=== PATIENT | male | born 1985 | race Caucasian/White ===

== ENCOUNTER 2023-02-19 04:51 | Emergency (ER) | payer OTHER ==
[2023-02-19 05:03] VITALS: PULSE 66; TEMP 97.8; BMI 22.9
[2023-02-19] MEDS ORDERED: CEFAZOLIN 1 GM in DEXTROSE 5%-WATER - 50 ML IVPB ONE (05:06)
[2023-02-19] MEDS ORDERED: morphine SULFATE 4 MG/ML VIAL IVPUSH ONE (05:08)
[2023-02-19] MEDS ORDERED: DIPHTH,PERTUSS(ACELL),TET 0.5 ML DISP.SYRIN IM ONE ×2 (05:08→05:15)
[2023-02-19] MEDS ORDERED: CEFAZOLIN SODIUM 2 GM VIAL IVPB ONE (05:13)
[2023-02-19] MEDS ORDERED: ceFAZolin SODIUM 1 GM VIAL ONE ×2 (05:15→05:43)
[2023-02-19] MEDS ORDERED: morphine SULFATE 4 MG/ML VIAL ONE (05:15)
[2023-02-19] MEDS ORDERED: LACTATED RINGERS SOLUTION 1000 ML INFUS.BAG IV ONE (05:24)
[2023-02-19] MEDS ORDERED: ONDANSETRON 4 MG/2 ML VIAL IVPUSH ONE (05:24)
[2023-02-19 05:40] LABS: BASO % 0.7 % (0-2.0); EOS % 3.1 % (0-4.5); HEMATOCRIT 42.3 % (35.4-49); HEMOGLOBIN 14.5 GM/dL (11.7-16.9); LYMPH % 47.1 % (8-40); MCH 31.9 pg (25.7-33.7); MCHC 34.2 g/dl (32.0-35.9); MEAN CELL VOLUME 93.3 fl (80-96); MEAN PLT VOLUME 7.8 fl (7.5-11.1); MONO % 6.7 % (3.8-10.2); NEUT % 42.4 % (42.8-82.8); PLATELET COUNT 257 10^3/uL (134-434); RBC 4.53 M/mm3 (4.00-5.60); RDW 13.1 % (11.9-15.9)
[2023-02-19] MEDS ORDERED: ONDANSETRON 4 MG/2 ML VIAL ONE (05:43)
[2023-02-19 05:51] LABS: INR 1.04 (0.83-1.09); PROTHROMBIN TIME (PATIENT) 12.1 SEC (9.7-13.0)
[2023-02-19 05:52] LABS: ACTIVATED PTT 31.7 SECONDS (25.2-36.5)
[2023-02-19 06:16] LABS: POTASSIUM 3.8 mmol/L (3.5-5.1)
[2023-02-19 06:18] LABS: ALBUMIN 4.1 g/dl (3.4-5.0); CALCIUM 8.8 mg/dL (8.5-10.1)
[2023-02-19 06:21] LABS: CREATININE 0.7 mg/dL (0.55-1.3)
[2023-02-19 06:23] LABS: BILIRUBIN,TOTAL 0.6 mg/dL (0.2-1); TOT PROT 7.7 g/dl (6.4-8.2)
[2023-02-19 06:27] VITALS: BP 130/82; RESP 16
== END 2023-02-19 06:32 | disposition short-term general hospital (02) ==
LOC: JER 04:51
PROC: 3E033GC Introduction of Other Therapeutic Substance into Peripheral Vein, Percutaneous Approach (ICD-10-PCS; principal; 2023-02-19)
PROC: 3E033GC Introduction of Other Therapeutic Substance into Peripheral Vein, Percutaneous Approach (ICD-10-PCS; 2023-02-19)
PROC: 3E033GC Introduction of Other Therapeutic Substance into Peripheral Vein, Percutaneous Approach (ICD-10-PCS; 2023-02-19)
PROC: 3E0234Z Introduction of Serum, Toxoid and Vaccine into Muscle, Percutaneous Approach (ICD-10-PCS; 2023-02-19)
DX: S62.636B Displaced fracture of distal phalanx of right little finger, initial encounter for open fracture (principal); W20.8XXA Other cause of strike by thrown, projected or falling object, initial encounter; Y99.0 Civilian activity done for income or pay
CPT/HCPCS: 36415; 73140-TC-RT-FY; 80053; 85025; 85610; 85730; 86850; 86900; 86901; 90715; 99285-25